=== PATIENT | female | born 1935 | race Caucasian/White ===

== ENCOUNTER → 2016-06-29 | Outpatient (CLI) | payer MEDICARE, OTHER ==
[~2016-06-29] MED LIST: ACET-2321 PO; AMIO200T7 PO; ASPI-558 PO; LEVO75TA10 PO; LORA0.5T86 PO; MAGN400O4 PO; OXYC5TAB84 PO; POLY17PO18 PO; SENN-152 PO
--- NOTE | 2016-06-29 15:15 | DI ---
Indication: ITS.REASON: M25.552 Pain in left hip Procedure: CT LOWER EXTREMITY LT W/O CONT: Encounter: Initial Comparison: Pelvic and left hip radiographs 06/03/2016 and 06/02/2016, left hip radiographs 04/06/2016, pelvic radiograph 03/25/2014 Technique: Contiguous axial CT images of the left hip were obtained without intravenous contrast. Coronal and sagittal reformatted images as well as 3-D reconstructed images were performed. Findings: Redemonstration of postoperative changes of left total hip arthroplasty. The hardware components appear appropriately aligned without evidence of acute hardware complication. No acute periprosthetic fracture. No evidence of hardware loosening. The musculature surrounding the left hip and prosthesis appear grossly normal allowing for streak artifact from the metallic hardware. There is a partially visualized approximately 7 x 5 x 5 cm low-density cystic fluid collection seen within the subcutaneous soft tissues posterior lateral to the hip suspected to represent a postoperative seroma. Impression: 1. Postoperative changes of left total hip arthroplasty without evidence of acute hardware complication, loosening, or periprosthetic fracture. 2. Low-density cystic fluid collection within the subcutaneous soft tissues posterior lateral to the hip likely related to a residual postoperative seroma. .
== END ==
LOC: IMA 13:20
PROVIDERS: ATTEND Physician Assistant Surgical
DX: M79.9 Soft tissue disorder, unspecified (principal); Z96.642 Presence of left artificial hip joint; M25.552 Pain in left hip

== ENCOUNTER 2016-07-08 08:20 | Emergency (ER) | payer MEDICARE, OTHER ==
[~2016-07-08] VITALS: Ht 149.9 cm; Wt 66.0 kg
[2016-07-08 08:23] VITALS: Ht 149.9 cm; Wt 66.0 kg
--- OUTSIDE RECORDS SUMMARY | 2016-07-08 08:28 | XMS REPORT | Referral Summary ---
Author Author [facility] Organization [facility] Address Unknown Phone Unavailable Care Team Providers Care Shop Tech Name Role Phone Jimmy Palmer Primary Care Physician [phone] Encounter VC Date(s): 06/01/16 - 06/01/16 [facility] [address] [place], [place] [address] Discharge Disposition: 01-Home or Self Care Attending Physician: Brando Oro MD Admitting Physician: Brando Oro MD Vital Signs Most recent to 1 oldest [Reference Range]: Temperature Temporal 36.9 degC Artery [36.3-37.8 (06/01/16 2:34 PM) degC] Peripheral Pulse 73 bpm Rate [60-100 bpm] (06/01/16 9:11 AM) Heart Rate Monitored 80 bpm [60-100 bpm] (06/01/16 2:34 PM) Respiratory Rate 16 br/min [14-20 br/min] (06/01/16 2:34 PM) Blood Pressure 125/63 mmHg [90-140/60-90 mmHg] (06/01/16 2:34 PM) Mean Arterial 89 mmHg Pressure, Cuff (06/01/16 2:34 PM) SpO2 96 % (06/01/16 2:34 PM) Problem List Condition Effective Dates Status Health Status Informant Hip pain(Confirmed) Active patient Hypertension(Confirm Active patient ed) Hypothyroidism(Confi Active patient rmed) Bladder Active patient cancer(Confirmed) Allergies, Adverse Reactions, Alerts Substance Reaction Severity Status penicillin rash Active Medications amLODIPine 2.5 mg oral tablet 2.5 mg 1 tabs, Oral, Daily, 0 Refill(s) Start Date: 05/11/16 Status: Ordered aspirin 81 mg oral tablet 81 mg 1 tabs, Oral, Daily, 0 Refill(s) Start Date: 05/11/16 Status: Ordered hydroCHLOROthiazide 25 mg oral tablet 25 mg 1 tabs, Oral, Daily, 0 Refill(s) Start Date: 05/11/16 Status: Ordered levothyroxine 75 mcg (0.075 mg) oral capsule 75 mcg 1 caps, Oral, Daily, # 30 caps, 0 Refill(s) Start Date: 05/11/16 Status: Ordered oxyCODONE-acetaminophen 7.5 mg-325 mg oral tablet 1 tabs, Oral, q6hr, as needed for pain, 0 Refill(s) Start Date: 05/11/16 Status: Ordered Results No data available for this section Immunizations No data available for this section Procedures Procedure Date Related Diagnosis Body Site Injection Steroid Epidural Lumbar1 06/01/16 Injection Steroid Epidural Lumbar2 05/11/16 Carotid endarterectomy Cholecystectomy TURBT - Transurethral resection of bladder tumor 1auto-populated from documented surgical case 2auto-populated from documented surgical case Social History Social History Type Response Smoking Status Former smoker; Type: Cigarettes Assessment and Plan No data available for this section
--- OUTSIDE RECORDS SUMMARY | 2016-07-08 08:28 | XMS REPORT | Continuity of Care Document ---
Author Author [facility] Organization [facility] Address Unknown Phone Unavailable Support Name Relationship Address Phone STUART CAMACHO DO Caregiver [address] [place] [phone] JOSE A GILLIS MD Caregiver [address] [place] [phone] DIONY SOLORZANO Next Of Kin [address] [place], [place] [id number] Insurance Providers Payer Name Policy Number Subscriber Name Relationship Medicare [id number] Laurie Solorzano 18 Self [place] [id number] Laurie Solorzano 18 Self Advance Directives Directive Response Recorded Date/Time Advanced Directives Type None 03/25/14 7:44pm Problems Medical Problems Problem Onset Date Status Fracture of inferior pubic ramus Unknown Active Fracture of inferior pubic ramus Unknown Active Fall Unknown Active Compression fracture Unknown Active Back strain Unknown Active Medications Medication Dose Route Sig Days/Qty Instructions Order Date Discontinued Date Status Aspirin 81 Mg PO DAILY 10/28/09 Active Valsartan/Hydrochlorothiazide 1 Tab PO DAILY 06/05/09 10/28/09 Discontinued Levothyroxine Sodium 88 Mcg PO DAILY 10/29/09 Active Oxycodone Hcl/Acetaminophen 1 Tab PO NEEDED 10/29/09 Active Hydrochlorothiazide 25 Mg PO DAILY 10/29/09 Active Lisinopril 40 Mg PO DAILY 10/29/09 Active Amlodipine Besylate 2.5 Mg PO DAILY 10/29/09 Active Hydrocodone/Acetaminophen 1-2 Tab PO Every 6 Hours PRN PAIN 20 Qty 12/29 Active Social History Social History Problem Response Recorded Date/Time Chewing Tobacco Status No 03/25/2014 8:00pm Hx Substance Use No 03/25/2014 8:00pm Hx Alcohol Use No 03/25/2014 8:00pm Query Response Start Date Stop Date Smoking Status Never smoker Hospital Discharge Instructions No hospital discharge instructions. Plan of Care No plan of care. Functional Status Query Response Date Recorded Physical Hygiene Self March 25, 2014 8:00pm Disabilities Visual March 25, 2014 8:00pm Devices Used Glasses March 25, 2014 8:00pm Dressing Self March 25, 2014 8:00pm Ambulation Self March 25, 2014 8:00pm Diet Self March 25, 2014 8:00pm Mental Status Alert Oriented March 25, 2014 11:03pm Disabilities Visual March 25, 2014 8:00pm Devices Used Glasses March 25, 2014 8:00pm Physical Hygiene Self March 25, 2014 8:00pm Dressing Self March 25, 2014 8:00pm Ambulation Self March 25, 2014 8:00pm Diet Self March 25, 2014 8:00pm Allergies, Adverse Reactions, Alerts Allergen Type Severity Reaction Status Last Updated Penicillin Allergy Intermediate RASH/SWELLING Active 04/04/08 Immunizations Name Given Type Hx Influenza Vaccination Y 01/23 Historical Hx Pneumococcal Vaccination Y 03/24/2014 Historical Hx Influenza Vaccination Y 01/23 Historical Vital Signs Acute Vital Signs Vital Response Date/Time Temperature (Fahrenheit) 97.2 deg F (96.8 - 99.1) Temperature (Calculated Celsius) 36.67552 degrees C (36.0 - 37.3) Pulse Rate (adult) 82 bpm (60 - 100) Respiratory Rate 14 breaths/min (10 - 20) O2 Sat by Pulse Oximetry 97 % (90 - 100) Blood Pressure 108/64 mm Hg Height 5 ft 1 in Weight 141 lb Body Mass Index 26.0 kg/m^2 Results Test Source Date Result Interp. Ref. Range Comments Activated Partial Thromboplast Time March 25, 2014 7:44pm 26.6 SEC N 24-36 Alanine Aminotransferase (ALT/SGPT) March 25, 2014 7:44pm 28 U/L N 9- 52 Albumin March 25, 2014 7:44pm 3.8 G/DL N 3.5-5.0 Albumin/Globulin Ratio March 25, 2014 7:44pm 1.3 RATIO N 1.1-2.2 Alkaline Phosphatase March 25, 2014 7:44pm 104 U/L N 38-126 Anion Gap March 25, 2014 7:44pm 6 MEQ/L N 5-15 Aspartate Amino Transf (AST/SGOT) March 25, 2014 7:44pm 20 U/L N 14- 36 BUN/Creatinine Ratio March 25, 2014 7:44pm 13 RATIO N 6-26 Band Neutrophils # January 02, 2013 10:42am 0.1 T/MM3 - Band Neutrophils % January 02, 2013 10:42am 1.0 % N 0-6 Basophils # (Auto) October 31, 2009 5:30am 0.0 T/MM3 N 0-0.2 Basophils (%) (Auto) October 31, 2009 5:30am 0.3 % N 0-2 Blood Smear Pathologist Review January 02, 2013 10:42am Sent for review - Blood Urea Nitrogen March 25, 2014 7:44pm 18.0 MG/DL H 7-17 Calcium Level March 25, 2014 7:44pm 9.5 MG/DL N 8.4-10.2 Calculated Osmolality March 25, 2014 7:44pm 266 MOSM/KG N 261-280 Carbon Dioxide Level March 25, 2014 7:44pm 23 MEQ/L N 22-30 Chemistry Specimen Hemolysis March 25, 2014 7:44pm < 15 0-25 0-25 : No Hemolysis.26-70: Slight Hemolysis - can falsely elevate K and Urine Protein. 71-285: Moderate Hemolysis - can falsely elevate K, Troponin I, CA 19-9, PTH, CSF GLucose, and Urine Protein, and can falsely decrease Phenytoin. 286-999: Gross Hemolysis - can falsely elevate K, Troponin I, CA 19-9, PTH, CSF Glucose, and Urine Protine, and can falsely decrease Phenytoin. Recommend specimen recollection. Chloride Level March 25, 2014 7:44pm 108 MEQ/L H 98-107 Creatinine March 25, 2014 7:44pm 1.4 MG/DL H 0.7-1.2 Eosinophils # (Auto) October 31, 2009 5:30am 0.3 T/MM3 N 0-0.5 Eosinophils # (Manual) January 02, 2013 10:42am 0.6 T/MM3 H 0-0.5 Eosinophils % (Manual) January 02, 2013 10:42am 7.0 % H 0-4 Eosinophils (%) (Auto) October 31, 2009 5:30am 2.8 % N 0-4 Ferritin January 02, 2013 10:42am 55.5 NG/ML N 11-264 Folate January 02, 2013 10:42am 10.0 NG/ML N 2.76-20 NORMAL ADULT RANGE: 2.76->20 ng/mL Globulin March 25, 2014 7:44pm 3.0 G/DL N 2.4-3.6 Glomerular Filtration Rate Calc March 25, 2014 7:44pm 36 - Glucose Level March 25, 2014 7:44pm 106 MG/DL N 65-110 Hematocrit March 25, 2014 8:15pm 33.2 % L 36-46 Hemoglobin March 25, 2014 8:15pm 10.8 GM/DL L 12-16 Icterus Index March 25, 2014 7:44pm < 2 0-7 Iron Level January 02, 2013 10:42am 63 UG/DL N 37-170 Lab Scanned Report January 02, 2013 12:49pm LAB TEST FORM REQUEST [id number] - Lymphocytes # (Auto) October 31, 2009 5:30am 1.8 T/MM3 N 1-4.8 Lymphocytes # (Manual) March 25, 2014 8:15pm 1.0 T/MM3 N 1-4.8 Lymphocytes % (Manual) March 25, 2014 8:15pm 9.0 % L 23-45 Lymphocytes (%) (Auto) October 31, 2009 5:30am 19.6 % L 23-45 Mean Corpuscular Hemoglobin March 25, 2014 8:15pm 30.9 UUG N 26-34 Mean Corpuscular Hemoglobin Concent March 25, 2014 8:15pm 32.5 GM/DL N 31-37 Mean Corpuscular Volume March 25, 2014 8:15pm 95.1 UM3 N 80-100 Mean Platelet Volume March 25, 2014 8:15pm 11.5 UM3 N 9.4-12.4 Monocytes # (Auto) October 31, 2009 5:30am 1.0 T/MM3 H 0-0.8 Monocytes # (Manual) March 25, 2014 8:15pm 0.3 T/MM3 N 0-0.8 Monocytes % (Manual) March 25, 2014 8:15pm 3.0 % N 0-9.0 Monocytes (%) (Auto) October 31, 2009 5:30am 10.3 % H 0-9.0 Neutrophils # (Auto) October 31, 2009 5:30am 6.3 T/MM3 N 1.8-7.7 Neutrophils # (Manual) March 25, 2014 8:15pm 10.2 T/MM3 H 1.8-7.7 Neutrophils % (Manual) March 25, 2014 8:15pm 88.0 % H 33-66 Neutrophils (%) (Auto) October 31, 2009 5:30am 67.0 % H 33-66 Percent Iron Saturation January 02, 2013 10:42am 27 % N 9-55 Platelet Count March 25, 2014 8:15pm 188 T/MM3 N 130-400 Potassium Level March 25, 2014 7:44pm 4.9 MEQ/L N 3.6-5 Prothromb Time International Ratio March 25, 2014 7:44pm 1.11 H 0.81- 1.09 THERAPUTIC RANGE=2.00-3.00 FOR ANTI-THROMBOSIS THERAPUTIC RANGE=2.50- 3.50 FOR IMPLANTED VALVE RDW Standard Deviation March 25, 2014 8:15pm 44.0 FL N 36.9-50.2 Reactive Lymphocytes # January 02, 2013 10:42am 0.1 T/MM3 H 0-0 Reactive Lymphocytes % January 02, 2013 10:42am 1.0 % H 0-0 Red Blood Count March 25, 2014 8:15pm 3.49 M/MM3 L 4.00-5.20 Sodium Level March 25, 2014 7:44pm 137 MEQ/L N 134-144 Tests Not Done March 03, 2009 10:40am Not done - Thyroid Stimulating Hormone (TSH) March 25, 2014 7:44pm 0.68 MIU/L N 0.47-4.68 Total Bilirubin March 25, 2014 7:44pm 1.00 MG/DL N 0.20-1.30 Total Iron Binding Capacity January 02, 2013 10:42am 231 UG/DL L 261- 497 Total Protein March 25, 2014 7:44pm 6.8 G/DL N 6.3-8.2 Transferrin January 02, 2013 10:42am 187.10 MG/DL L 206-381 Turbidity March 25, 2014 7:44pm < 20 0-20 Urinalysis Comment March 25, 2014 9:03pm Microscopic not ind. - Has specimen been collected/obtained? Y Urine Bilirubin March 25, 2014 9:03pm Negative - Has specimen been collected/obtained? Y Urine Blood March 25, 2014 9:03pm Trace-intact H - Has specimen been collected/obtained? Y Urine Collection Type March 25, 2014 9:03pm Straight cath - Has specimen been collected/obtained? Y Urine Color March 25, 2014 9:03pm Yellow - Has specimen been collected/obtained? Y Urine Glucose (UA) March 25, 2014 9:03pm Negative - Has specimen been collected/obtained? Y Urine Ketones March 25, 2014 9:03pm Negative - Has specimen been collected/obtained? Y Urine Leukocyte Esterase March 25, 2014 9:03pm Negative - Has specimen been collected/obtained? Y Urine Nitrite March 25, 2014 9:03pm Negative - Has specimen been collected/obtained? Y Urine Protein March 25, 2014 9:03pm Negative - Has specimen been collected/obtained? Y Urine Specific [place] March 25, 2014 9:03pm 1.015 - Has specimen been collected/obtained? Y Urine Turbidity March 25, 2014 9:03pm Clear - Has specimen been collected/obtained? Y Urine Urobilinogen March 25, 2014 9:03pm 0.2 EU/DL - Has specimen been collected/obtained? Y Urine pH March 25, 2014 9:03pm 6.0 - Has specimen been collected/ obtained? Y Vitamin B12 Level January 02, 2013 10:42am 302 PG/ML N 239-931 White Blood Count March 25, 2014 8:15pm 11.6 T/MM3 H 4.5-11.0 Gram Stain Shoulder, Surgery Site-Right October 29, 2009 8:50am Procedures No known history of procedures. Encounters Encounter Location Date/Time Registered Emergency Room [facility] 03/25/14 7:44pm Recent Diagnosis
--- OUTSIDE RECORDS SUMMARY | 2016-07-08 08:28 | XMS REPORT | Referral Summary ---
Author Author [facility] Organization [facility] Address Unknown Phone Unavailable Care Team Providers Care Wood Form Builder Name Role Phone Jimmy Palmer Primary Care Physician [phone] Encounter VC Date(s): 05/11/16 - 05/11/16 [facility] [address] [place], [place] [address] Discharge Disposition: 01-Home or Self Care Attending Physician: Brando Oro MD Vital Signs Most recent to 1 oldest [Reference Range]: Temperature Temporal 36.6 degC Artery [36.3-37.8 (05/11/16 10:15 AM) degC] Peripheral Pulse 80 bpm Rate [60-100 bpm] (05/11/16 10:15 AM) Respiratory Rate 16 br/min [14-20 br/min] (05/11/16 10:15 AM) Blood Pressure 136/57 mmHg [90-140/60-90 mmHg] (05/11/16 10:15 AM) SpO2 98 % (05/11/16 10:15 AM) Problem List Condition Effective Dates Status Health [...] Diagnosis Body Site Injection Steroid Epidural Lumbar1 05/11/16 Carotid endarterectomy Cholecystectomy TURBT - Transurethral resection of bladder tumor 1auto-populated from documented surgical case Social History Social History Type Response Smoking Status Former smoker; Type: Cigarettes Assessment and Plan No data available for this section
--- NOTE | 2016-07-08 08:40 | NUR ---
VERBAL ORDERS VERBAL ORDERS FOR MORPHINE 2 MG AND ZOFRAN 4 MG AND GIVEN PRIOR TO ORDERS ENTERED.
[2016-07-08] MEDS ORDERED: ONDANSETRON 4mg/2ml INJECTION IV ONE (08:45)
[2016-07-08] MEDS ORDERED: MORPHINE SULFATE 2 MG SYRINGE IV ONE (08:45)
--- OUTSIDE RECORDS SUMMARY | 2016-07-08 08:51 | XMS REPORT | Continuity of Care Document ---
Author Author [facility] Organization [facility] Address Unknown Phone Unavailable Support Name Relationship Address Phone STUART CAMACHO DO Caregiver [address] [place] [phone] JOSE A GILLSI MD Caregiver [address] [place] [phone] DIONY SOLORZANO Next Of Kin [address] [place], [place] [id number] Insurance Providers Payer Name Policy Number Subscriber Name Relationship Medicare [id number] Laurie Solorzano 18 Self [place] [id number] Laurie Solorzano 18 Self Advance Directives Directive [...] F (96.8 - 99.1) Temperature (Calculated Celsius) 36.42031 degrees C (36.0 - 37.3) Pulse Rate [...] 02, 2013 12:49pm LAB TEST FORM REQUEST [id number] - Lymphocytes # (Auto) October 31, 2009 [...] Has specimen been collected/obtained? Y Urine Specific [place] March 25, 2014 9:03pm 1.015 - Has [...] Encounters Encounter Location Date/Time Registered Emergency Room [facility] 03/25/14 7:44pm Recent Diagnosis
--- NOTE | 2016-07-08 09:06 | NUR ---
CLOTHING PT'S JEANS CUT OFF OF PT WITH HER PERMISSION, ATTEMPTED TO TAKE JEANS OFF BUT CAUSED PT TOO MUCH PAIN.
--- NOTE | 2016-07-08 09:08 | NUR ---
XRAY/CT PT TAKEN FOR CT AND XRAYS PER COT.
[2016-07-08] MEDS ORDERED: AMIO200T2 PO (09:22)
[2016-07-08] MEDS ORDERED: LEVO75TA10 PO (09:22)
[2016-07-08] MEDS ORDERED: POLY250020 PO (09:23)
[2016-07-08] MEDS ORDERED: SENN-152 PO (09:23)
[2016-07-08] MEDS ORDERED: LORA0.5T2 PO (09:26)
--- NOTE | 2016-07-08 09:26 | NUR ---
CT PT RETURNED FROM CT PER COT.
[2016-07-08] MEDS ORDERED: ACET-2890 PO (09:27)
[2016-07-08] MEDS ORDERED: MAGN400O4 PO (09:28)
[2016-07-08] MEDS ORDERED: OXYC1TAB8 PO (09:29)
--- NOTE | 2016-07-08 09:32 | DI ---
Indication: ITS.REASON: fall PROCEDURE: CT HEAD W/O CONTRAST: Encounter: Initial Comparison: March 25, 2014 Technique: Axial CT images through the head were performed without contrast. Iterative Reconstruction dose reducing technique was utilized. FINDINGS: Moderate atrophy. The ventricles are of normal size, shape, and configuration for the patient's age. There is no evidence of acute intracranial hemorrhage, midline displacement, or mass effect. There are extensive areas of low attenuation in the white matter which most likely represent changes of chronic microvascular ischemia. The CT attenuation of the brain parenchyma is otherwise normal within the cerebellum, brain stem, and cerebral hemispheres. The tympanic cavities and mastoid air cells are free of appreciable disease. There are no definite fractures of the skull base, calvarium, or visualized portion of the midface. IMPRESSION: No CT evidence of acute traumatic intracranial injury. .
--- NOTE | 2016-07-08 09:35 | DI ---
Indication: ITS.REASON: fall with neck pain PROCEDURE: CT CERVICAL SPINE W/O CONTRAST: Encounter: Initial Comparison: None Technique: Axial CT images through the cervical spine were performed without contrast. Coronal and sagittal reformatted images were also obtained. Automated Exposure Control and Iterative Reconstruction dose reducing techniques were utilized. FINDINGS: Motion artifact limits the exam. The alignment of the cervical spine is normal. Multilevel degenerative changes are present. There is no gross evidence of acute fracture or subluxation of the cervical spine. The atlantoaxial articulation, dens, and upper cervical spine demonstrate no subluxation. The paraspinal soft tissues and spinal canal appear unremarkable. IMPRESSION: No acute traumatic abnormality of the cervical spine. .
--- NOTE | 2016-07-08 09:39 | DI ---
Indication: ITS.REASON: pain, fall PROCEDURE: PELVIS W/2 VIEW LT HIP: Encounter: Initial Comparison: June 03, 2016 Findings: Left femoral head replacement appears intact. No evidence of hardware loosening or failure. Bony demineralization. There is a small oblique lucency in the medial cortex of the proximal femoral diaphysis seen on two of the views. Impression: Possible nondisplaced fracture of the medial proximal femur. CT could be performed for further evaluation. .
--- NOTE | 2016-07-08 09:45 | NUR ---
PAIN RE-ASSESSMENT/PROVIDER NOTIFIED PT IS SOBBING IN ROOM, C/O SEVERE PAIN TO LEFT HIP, UNABLE TO COMFORT PT WITH POSITIONING. DR. MICHELLE IS NOTIFIED OF PT'S CONTINUED DISCOMFORT.
--- NOTE | 2016-07-08 09:57 | NUR ---
VERBAL ORDERS FENTANYL 50 MCG FENTANYL GIVEN IV PER VERBAL ORDERS DR. MICHELLE.
[2016-07-08] MEDS ORDERED: FENTANYL 100mcg/2ml INJECTION IV ONE (10:15)
--- NOTE | 2016-07-08 10:42 | NUR ---
FAMILY CONTACT SPOKE TO PT'S SON PER CELL PHONE, ADVISED PT WILL BE TRANSFERING TO [facility] SHORTLY. PT STATES HE WILL MEET PT AT [facility] LATER TODAY, IS UNABLE TO GET AWAY AT THIS TIME.
--- NOTE | 2016-07-08 10:43 | ERPDOC ---
Departure Disposition Decision Date: Jul 08, 2016 Disposition Decision Time: 10:30 Disposition: 02 TO [facility] Impression Impression Impression: Primary Impression: Femur fracture Encounter type: initial encounter Femur location: shaft Fracture type: closed Fracture morphology: unspecified fracture morphology Laterality: left Qualified Codes: S72.302A - Unspecified fracture of shaft of left femur, initial encounter for closed fracture Severity: Moderate Condition: Improved Seen By: Physician only Referrals: STUART CAMACHO DO (Family) Problems/Meds/Labs Reviewed?: Yes Medications reviewed and manag: Yes Follow up care ordered?: Yes Mental Status: Alert, Confused HPI - Lower Extremity General Chief Complaint: Lower Extremity Injury Stated Complaint: FALL, HEAD INJ Time Seen by Provider: 08:28 Source: patient, EMS Exam Limitations: no limitations HPI - Lower Extremity Initial Comments 80-year-old female presents to the emergency department with a chief complaint of an injury to her left hip. Patient was ambulating at her nursing facility when she slipped causing her to lose her balance and fall. Patient landed directly on her left hip. The event was witnessed. Patient notes a severe pain in the left hip. No radiation. Pain is dull. Pain increases with movement of the affected extremity and improves with rest and positioning. Patient denies any other complaints or associated symptoms. Patient was at her care facility when the incident occurred. Symptoms have been persistent in nature since onset. Patient denies any other injuries. Allergies: Coded Allergies: Penicillins (Verified Allergy, Intermediate, RASH/SWELLING, 07/08/16) Past History Patient Surgical History bilateral carotid surgery, lap choley, several cystoscopies, Right shoudler surgery colonoscopy per Dr Cisse s/p L hip surgery by Dr. Leyva Past Medical History Metabolic: cancer, hypercholesterolemia, hypertension, hypothyroidism Cardiac: CAD, other Respiratory: other Female: renal insufficiency Surgical History General: gallbladder Cardiac: carotid endarterectomy Reproductive/: other Joint: shoulder Family History Family PMH: FOUND: cancer, diabetes Vaccines Hx Influenza Vaccination: No (pt. does not know) Hx Pneumococcal Vaccination: No (pt. does not know) Social History Smoking Status: Never smoker Does patient use chewing tobac: No Second Hand Exposure: No Substance Use Type: does not use Alcohol Intake: none Housing: house Service: No Current Occupational Status: retired Review of Systems Constitutional Constitutional: DENIES: chills, fever Eyes General: DENIES: erythema, exudate Lids/Accessories: DENIES: erythema, swelling Vision: DENIES: acuity, blurring ENMT Ears: DENIES: drainage, erythema Hearing: DENIES: hearing loss Balance: DENIES: ataxia, falling to one side Sinuses: DENIES: congestion, pain Nose: DENIES: nosebleeds, pain Mouth/Throat: DENIES: sore throat Teeth: DENIES: pain Cardiovascular Cardiac: DENIES: chest pain, dyspnea on exertion Rhythm/Rate: DENIES: irregular beat, palpitations Vascular: DENIES: pedal edema, unilateral swelling Pulmonary Respiratory: DENIES: cough, dyspnea, pleuritic chest pain, sputum GI Upper Abdomen: DENIES: nausea, pain, vomiting Lower Abdomen: DENIES: diarrhea, pain General: DENIES: dysuria, pain Musculoskeletal General: joint pain, tenderness Integumentary Skin: DENIES: itching, rash Neurological General: DENIES: headache, numbness, weakness Psychiatric Psychiatric: DENIES: emotional instability, suicidal ideation/attempt Hematologic/Lymphatic Hematologic/Lymphatic: DENIES: frequent nosebleeds, lymphadenopathy Allergic/Immunological Allergic/Immunoligical: DENIES: frequent infections, hives Physical Exam General General Nourishment: well nourished, well developed, appears stated age, no acute distress, adult General Body Habitus: well groomed Vitals and Pain First Documented Vital Signs Date Time Temp Pulse Resp B/P Pulse Ox O2 Delivery O2 Flow Rate FiO2 07/08/16 08:23 98.2 77 18 139/90 99 Room Air Weight: Kilograms: 66.000 Height (feet): 4 Height (inches): 11.00 Triage Pain Scale: RN VS reviewed by Provider: Yes Normal Exams: Head: Normocephalic w/o trauma Eyes: Pupils are PERRLA w/ EOMI, No scleral icterus, irritation, or foreign bodies noted ENMT: No facial trauma, nasal exudates, pharyngeal erythema, or exudates are noted Dental: No fractured, loose, or missing teeth noted Neck: Full range of motion, without adenopathy, JVD, bruits or thyromegaly Chest/Resp: Clear all lindquist, with good airflow, and symmetry bilaterally CV: Regular rate and rhythm, without murmur or gallop, Pulses 2+ all extremities, capillary refill, <2 seconds all ext., no pedal edema noted Abdomen: Bowel sounds positive, soft, non-tender, non-distended, no hepatosplenomegaly, masses or bruits noted Lymphatic: No lymphadenopathy, or lymphedema noted Integumentary: No rashes, hives, or bruising noted, hair and nails, without abnormality Neurologic: Patient is alert, and oriented, cranial nerves, motor/sensory/ cerebellar, exams w/o gross deficits, to observation Psychiatric: Patient exhibits, appropriate attention, emotion and affect Neck (brief) Comments No mid-line tenderness or deformity. Musculoskeletal (brief) Comments L Hip - diffusely tender to palpation. Skin is intact. Pulses intact. Sensation intact. Capillary refill less than 2. Decreased range of motion secondary to pain. No erythema. No edema. No other tenderness in the left lower extremity. All other extremities are unremarkable. Differential Diagnoses Considering: Contusion, Dislocation, Fracture, Sprain, Strain Progress Results/Orders Orders Procedure Category Date Status Time Ct Cervical Spine W/O CT 07/08/16 Resulted Contrast 08:33 Pelvis W/2 View Lt Hip RAD 07/08/16 Resulted 08:33 Morphine Sulfate PHA 07/08/16 Complete (Morphine) 08:45 Ondansetron Inj PHA 07/08/16 Complete (Zofran) 08:45 Ct Head W/O Contrast CT 07/08/16 Resulted 08:33 Fentanyl (Fentanyl) PHA 07/08/16 Complete 10:15 Medications Current ED Medications Morphine Sulfate (Morphine) 2 mg O ONCE IV Last administered on 07/08/16 08: 40; Start 07/08/16 at 08:45; Stop 07/08/16 at 08:46; Status DC Ondansetron HCl (Zofran) 4 mg O ONCE IV Last administered on 07/08/16 08:40; Start 07/08/16 at 08:45; Stop 07/08/16 at 08:46; Status DC Fentanyl (Fentanyl) 50 mcg O ONCE IV Last administered on 07/08/16 09:57; Start 07/08/16 at 10:15; Stop 07/08/16 at 10:16; Status DC Progress Progress Imaging is discussed in detail with the patient and questions are answered. Patient is given parental narcotic and antiemetic medications intravenously with improvement of symptoms. Patient is discussed with orthopedic surgeon Dr. Leyva who is uncomfortable keeping the patient due to her history of ORIF of the left hip at [facility]. Dr. Leyva's recommendation is to transfer the patient to [facility] under the care of Dr. Vj Chino for revision of the hip replacement. Orthopedic services are not available for the type of surgery the patient would need at [facility] and the patient must be transferred to [facility]. Patient is in agreement with the current plan of management. Patient is transferred to [facility] without incident. Risks versus benefit of transfer discussed in detail with the patient who verbalizes agreement and understanding. Dr. Vj Chino was accepting physician at [facility]. Xray Xray : Xray: Pelvis Interpretation: Abnormal, Interpreted by Me (left femoral fracture.), Reviewed Written Report CT CT : CT: Head no contrast Interpretation: Normal (CT cervical spine: Negative.), Interpreted by Me, Reviewed Written Report DONATO MICHELLE DO Jul 08, 2016 10:43
--- NOTE | 2016-07-08 11:00 | NUR ---
PAIN RE-ASSESSMENT PT STATES SHE IS FEELING MUCH BETTER, 2/ WHILE STILL. IMPROVEMENT POST FENTANYL AND RUST CATH.
--- NOTE | 2016-07-08 11:10 | NUR ---
EMS ON SCENE EMS HERE FOR TRANSFER, [facility] NOW DELAYING TRANSFER, EMS REMAINS ON SCENE.
--- NOTE | 2016-07-08 11:39 | NUR ---
REPORT REPORT CALLED TO ALEKS ALICEA.
[2016-07-08 11:57] VITALS: BP 157/83; PULSE 66; RESP 14; TEMP 98; O2SAT 97
--- NOTE | 2016-07-08 11:57 | NUR ---
DEPART ED PT DEPARTED PER EMS AT THIS TIME.
--- NOTE | 2016-07-08 14:15 | NUR ---
REPORT REPORT CALLED TO KEANU GIFFORD.
== END 2016-07-08 11:57 | disposition short-term general hospital (02) ==
LOC: ED 08:20
DX: S72.302A Unspecified fracture of shaft of left femur, initial encounter for closed fracture (principal); M54.2 Cervicalgia; W01.0XXA Fall on same level from slipping, tripping and stumbling without subsequent striking against object, initial encounter; Y93.01 Activity, walking, marching and hiking; Y92.129 Unspecified place in nursing home as the place of occurrence of the external cause; Y99.8 Other external cause status
CPT/HCPCS: 51702; 70450; 72125; 73502; 96374; 96375; 99285; J2405; J3010

== ENCOUNTER 2016-08-06 13:04 | Emergency (ER) | payer MEDICARE, OTHER ==
[~2016-08-06] VITALS: Ht 154.9 cm; Wt 65.0 kg
[~2016-08-06 13:04] MED LIST changes: -ACET-2321 PO; +ACET-2890 PO; +AMIO200T2 PO; -AMIO200T7 PO; +LORA0.5T2 PO; -LORA0.5T86 PO; +OXYC1TAB8 PO; -OXYC5TAB84 PO; -POLY17PO18 PO; +POLY250020 PO
[2016-08-06 13:05] VITALS: Ht 154.9 cm; Wt 65.0 kg
--- OUTSIDE RECORDS SUMMARY | 2016-08-06 13:09 | XMS REPORT | Continuity of Care Document ---
Author Author [facility] Organization [facility] Address Unknown Phone Unavailable Allergies Active Description Code Type Severity Reaction Onset Reported/Identified Relationship to Patient Clinical Status Yes Penicillins Penicillins Drug Allergy Unknown ITCHING 07/08/2016 Medications Problems Date Dx Coded Attending Type Code Diagnosis Diagnosed By 07/08/2016 Lars Chino MD D62 ACUTE POSTHEMORRHAGIC ANEMIA 07/08/2016 Lars Chino MD D72.829 ELEVATED WHITE BLOOD CELL COUNT, UNSPECIFIED 07/08/2016 Lars Chnio MD E03.9 HYPOTHYROIDISM, UNSPECIFIED 07/08/2016 Lars Chino MD E78.5 HYPERLIPIDEMIA, UNSPECIFIED 07/08/2016 Lars Chino MD E87.5 HYPERKALEMIA 07/08/2016 Lars Chino MD F03.90 UNSPECIFIED DEMENTIA WITHOUT BEHAVIORAL DISTURBANC 07/08/2016 Lars Chino MD I12.9 HYPERTENSIVE CHRONIC KIDNEY DISEASE W STG 1-4/UNSP 07/08/2016 Lars Chino MD I25.10 ATHSCL HEART DISEASE OF [place] CORONARY ARTERY W/O 07/08/2016 Lars Chino MD I48.91 UNSPECIFIED ATRIAL FIBRILLATION 07/08/2016 Lars Chino MD M97.02XA PERIPROSTH FRACTURE AROUND INTERNAL PROSTH L HIP J 07/08/2016 Lars Chino MD N18.9 CHRONIC KIDNEY DISEASE, UNSPECIFIED 07/08/2016 Lars Chino MD R09.02 HYPOXEMIA 07/08/2016 Lars Chino MD S72.042A DISP FX OF BASE OF NECK OF LEFT FEMUR, INIT FOR CLOS FX 07/08/2016 Lars Chino MD W19.XXXA UNSPECIFIED FALL, INITIAL ENCOUNTER 07/08/2016 Lars Chino MD 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 07/08/2016 Lars Chino MD Z88.0 ALLERGY STATUS TO PENICILLIN 07/08/2016 Lars Chino MD Z90.49 ACQUIRED ABSENCE OF OTHER SPECIFIED PARTS OF DIGES Procedures Code Description Performed By Performed On [id number] REMOVAL OF INT FIX FROM L HIP JT, OPEN APPROACH Lars Chino MD 07/08/2016 [id number] REPLACE OF L HIP JT WITH SYNTH SUB, CEMENT, Lars Yin MD 07/08/2016 [id number] INTRODUCTION OF OTH ANTI-INFECT INTO JOINT, Lars Yin MD 07/08/2016 Results Test Result Range CBC W/DIFF - 07/08/16 14:56 EOSINOPHIL # 0.1 k/cumm 0.1-0.5 EOSINOPHIL % 1 % 2-4 GRANULOCYTE # 6.1 k/cumm 2.0-9.0 GRANULOCYTE % 69 % 50-75 LYMPHOCYTE # 1.8 k/cumm 1.0-4.0 LYMPHOCYTE % 21 % 20-30 MEAN CELL HGB 30.6 pg 27.0-33.0 MEAN CELL HGB CONCENTRATION 32.3 g/dL 32.0-37.0 MEAN CELL VOLUME 94.7 fl 80.0-100.0 MONOCYTE # 0.7 k/cumm 0.1-1.0 MONOCYTE % 8 % 4-6 RED BLOOD CELL 3.40 m/cumm 4.00-6.00 RED CELL DISTRIBUTION WIDTH 14.8 % 11.0- 15.6 WHITE BLOOD CELL 8.9 k/cumm 5.0-10.0 HEMOGLOBIN 10.4 gm/dL 12.0-16.0 HEMATOCRIT 32.2 % 37.0-47.0 PLATELET COUNT 278 k/cumm 150-400 PROTHROMBIN TIME WITH INR - 07/08/16 14:56 INTERNATIONAL NORMAL RATIO 1.1 0.9-1.1 PROTHROMBIN TIME 12.5 sec 10.0-12.9 METABOLIC PANEL, COMPREHN - 07/08/16 14:56 POTASSIUM 4.3 mmol/L 3.5-5.3 EST GFR (MDRD) 48 mL/min > 59 ANION GAP 8 mmol/L 5-15 EST CrCl (CG) 35 mL/min > 59 GLUCOSE 79 mg/dL 70-99 CALCIUM 8.9 mg/dL 8.5-10.1 BLOOD UREA NITROGEN 10 mg/dL 7-20 CREATININE 1.1 mg/dL 0.6-1.0 SODIUM 139 mmol/L 135-148 CHLORIDE 105 mmol/L 98-110 AST/SGOT 14 Units/L 10-37 ALT/SGPT 10 Units/L < 66 CARBON DIOXIDE 26 mmol/L 21-32 TOTAL PROTEIN 6.4 gm/dL 6.4-8.2 ALBUMIN 3.4 gm/dL 3.4-5.0 BILI TOTAL 0.7 mg/dL 0.0-1.0 ALKALINE PHOSPHATASE TOTAL 106 IU/L 45- 117 MRSA SURVEILLANCE SCREEN - 07/09/16 11:22 Microbiology CBC - 07/10/16 07:31 MEAN CELL HGB 30.6 pg 27.0-33.0 MEAN CELL HGB CONCENTRATION 33.3 g/dL 32.0-37.0 MEAN CELL VOLUME 91.8 fl 80.0-100.0 RED BLOOD CELL 2.94 m/cumm 4.00-6.00 RED CELL DISTRIBUTION WIDTH 14.6 % 11.0- 15.6 WHITE BLOOD CELL 16.8 k/cumm 5.0-10.0 HEMOGLOBIN 9.0 gm/dL 12.0-16.0 HEMATOCRIT 27.0 % 37.0-47.0 PLATELET COUNT 210 k/cumm 150-400 [facility] - 07/10/16 07:31 POTASSIUM 5.0 mmol/L 3.5-5.3 EST GFR (MDRD) 43 mL/min > 59 ANION GAP 11 mmol/L 5-15 EST CrCl (CG) 32 mL/min > 59 GLUCOSE 117 mg/dL 70-99 CALCIUM 8.1 mg/dL 8.5-10.1 BLOOD UREA NITROGEN 12 mg/dL 7-20 CREATININE 1.2 mg/dL 0.6-1.0 SODIUM 138 mmol/L 135-148 CHLORIDE 107 mmol/L 98-110 AST/SGOT 27 Units/L 10-37 ALT/SGPT 17 Units/L < 66 CARBON DIOXIDE 20 mmol/L 21-32 TOTAL PROTEIN 5.7 gm/dL 6.4-8.2 ALBUMIN 2.8 gm/dL 3.4-5.0 BILI TOTAL 1.0 mg/dL 0.0-1.0 ALKALINE PHOSPHATASE TOTAL 91 IU/L 45- 117 CBC - 07/11/16 06:41 MEAN CELL HGB 30.9 pg 27.0-33.0 MEAN CELL HGB CONCENTRATION 32.4 g/dL 32.0-37.0 MEAN CELL VOLUME 95.4 fl 80.0-100.0 RED BLOOD CELL 2.59 m/cumm 4.00-6.00 RED CELL DISTRIBUTION WIDTH 14.9 % 11.0- 15.6 WHITE BLOOD CELL 12.0 k/cumm 5.0-10.0 HEMOGLOBIN 8.0 gm/dL 12.0-16.0 HEMATOCRIT 24.7 % 37.0-47.0 PLATELET COUNT 208 k/cumm 150-400 METABOLIC PANEL, BASIC - 07/11/16 06:41 POTASSIUM 3.7 mmol/L 3.5-5.3 EST GFR (MDRD) 48 mL/min > 59 ANION GAP 8 mmol/L 5-15 EST CrCl (CG) 35 mL/min > 59 GLUCOSE 92 mg/dL 70-99 CALCIUM 8.2 mg/dL 8.5-10.1 BLOOD UREA NITROGEN 20 mg/dL 7-20 CREATININE 1.1 mg/dL 0.6-1.0 SODIUM 141 mmol/L 135-148 CHLORIDE 107 mmol/L 98-110 CARBON DIOXIDE 26 mmol/L 21-32 Encounters ACCT No. Visit Date/Time Discharge Status Pt. Type Provider Facility Loc./Unit Complaint [id number] 07/08/2016 12:35:00 2016 14:57:00 DIS Inpatient Matti DAUGHERTY, Lars Cruz [facility] [id number]
--- OUTSIDE RECORDS SUMMARY | 2016-08-06 13:09 | XMS REPORT | Continuity of Care Document ---
Author Author [facility] Organization [facility] Address Unknown Phone Unavailable Support Name Relationship Address Phone STUART CAMACHO DO Caregiver [address] [place] [phone] JOSE A GILLIS MD Caregiver [address] [place] [phone] DIONY SOLORZANO Next Of Kin [address] [place], [place] [id number] Insurance Providers Payer Name Policy Number Subscriber Name Relationship Medicare [id number] Laurie Solorzano 18 Self [employer] [place] [id number] Laurie Solorzano 18 Self Advance Directives Directive [...] F (96.8 - 99.1) Temperature (Calculated Celsius) [phone] degrees C (36.0 - 37.3) Pulse Rate [...] 02, 2013 12:49pm LAB TEST FORM REQUEST [id number] - Lymphocytes # (Auto) October 31, 2009 [...] Has specimen been collected/obtained? Y Urine Specific [place] March 25, 2014 9:03pm 1.015 - Has [...] Encounters Encounter Location Date/Time Registered Emergency Room 03/25/14 7:44pm Recent Diagnosis
--- NOTE | 2016-08-06 13:11 | ERPDOC ---
Departure Disposition Decision Date: Aug 06, 2016 Disposition Decision Time: 16:15 (MAVIS REYNOLDS APRN) Disposition: 01 DISCHARGED HOME, SELF-CARE Impression Impression (MAVIS REYNOLDS APRN) Impression: Primary Impression: Pelvic fracture Encounter type: initial encounter Pelvic bone location: pubis Sublocation of pubis: unspecified portion of pubis Fracture type: closed Laterality: left Qualified Codes: S32.502A - Unspecified fracture of left pubis, initial encounter for closed fracture Additional Impression: Sacral fracture, closed Encounter type: initial encounter Zone of sacrum fracture: unspecified portion of sacrum Qualified Codes: S32.10XA - Unspecified fracture of sacrum, initial encounter for closed fracture Severity: Moderate (MAVIS REYNOLDS APRN) Condition: Stable Seen By: Mid-level only (MAVIS REYNOLDS APRN) Referrals: STUART CAMACHO DO (Family) Patient Instructions: Pelvic Fracture (ED), Sacral Fracture (ED), Fall Prevention for Older Adults (ED) Problems/Meds/Labs Reviewed?: Yes Medications reviewed and manag: Yes (MAVIS REYNOLDS APRN) Additional Instructions: Patient needs to follow with Dr. Morris or Dr. Leyva for pelvic fracture next week. Patient may take norco 5/325mg, 1-2 every 4-6 hours as needed for pain. Please assist patient with all transfers and all ambulation. (Patient may ambulated with walker assisted by staff). Follow up care ordered?: Yes Mental Status: Alert (MAVIS REYNOLDS APRN) Scripts Hydrocodone/Acetaminophen ([place] 5-325 Tablet) 5-325 Tablet 1-2 TAB PO Q4-6HPRN Y for PAIN, #30 TAB Prov: MAVIS REYNOLDS APRN 08/06/16 HPI - Fall/Injury General Chief Complaint: Fall Stated Complaint: LOW BACK PAIN, FALL Time Seen by Provider: 13:10 Source: patient, [facility], other ([facility] notes) (MAVIS REYNOLDS APRN) Time Seen by Provider: 13:10 (DONATO BARCENAS DO) HPI - Fall/Injury Initial Comments 80-year-old female [facility] from [facility] for evaluation of lower back pain. Patient states that she was in a lift chair and slid out onto the floor on her buttocks at 1100 this morning. Patient was able to ambulated with assistance of waker and staff after fall. Patient denies striking her head, LOC or neck pain. Patient was given a tramadol which she says has not helped her pain much. Patient had hip replacement on 06-03-16 and then fell on 07-08-16 and was sent to [place] for left femoral fracture which she had additional left hip surgery. On exam patient does not have any back pain however is reporting pain over her right buttocks which does have a large area of ecchymosis. Pain Scale: Now: 10/10 Injuries/Pain Location: other (buttocks) Loss of Consciousness: no loss of consciousness Associated Symptoms: DENIES: abdominal pain, chest pain, confusion, dizziness, headache, lightheadedness, nausea/vomiting, shortness of breath, slurred speech , vision changes (MAVIS REYNOLDS APRN) Allergies: Coded Allergies: Penicillins (Verified Allergy, Intermediate, RASH/SWELLING, 07/08/16) Past History Patient Surgical History bilateral carotid surgery, lap choley, several cystoscopies, Right shoudler surgery colonoscopy per Dr Cisse s/p L hip surgery by Dr. Leyva (MAVIS REYNOLDS APRN) Past Medical History Metabolic: cancer, hypercholesterolemia, hypertension, hypothyroidism Cardiac: A-fib, CAD, other Respiratory: other, DENIES: asthma GI: ulcers Female: renal insufficiency Neurological: DENIES: seizures Musculoskeletal: osteoarthritis Psychological: DENIES: depression (MAVIS REYNOLDS APRN) Surgical History General: gallbladder Cardiac: carotid endarterectomy Reproductive/: other Joint: hip, shoulder (MAVIS REYNOLDS APRN) Family History Family PMH: FOUND: cancer, diabetes (MAVIS REYNOLDS APRN) Vaccines Hx Influenza Vaccination: No (pt. does not know) Hx Pneumococcal Vaccination: No (pt. does not know) (MAVIS REYNOLDS APRN) Social History Does patient use chewing tobac: No Second Hand Exposure: No Substance Use Type: does not use Alcohol Intake: none Housing: house, [facility] Service: No Current Occupational Status: retired (MAVIS REYNOLDS APRN) Review of Systems Constitutional Constitutional: DENIES: chills, dizziness, fever, weakness (MAVIS REYNOLDS APRN) Eyes General: DENIES: erythema, exudate Lids/Accessories: DENIES: erythema, swelling Vision: DENIES: blurring (REYNOLDS,MAVIS A REFRIGERATION ENGINEERING TEACHER) ENMT Ears: DENIES: pain Hearing: DENIES: hearing loss Sinuses: DENIES: congestion, rhinorrhea Mouth/Throat: DENIES: sore throat (REYNOLDS,MAVIS A REFRIGERATION ENGINEERING TEACHER) Cardiovascular Cardiac: DENIES: chest pain, murmur Rhythm/Rate: DENIES: palpitations (REYNOLDS,MAVIS A REFRIGERATION ENGINEERING TEACHER) Pulmonary Respiratory: DENIES: cough, dyspnea (REYNOLDS,MAVIS A REFRIGERATION ENGINEERING TEACHER) GI Upper Abdomen: DENIES: nausea, pain, vomiting Lower Abdomen: DENIES: diarrhea, pain (REYNOLDS,MAVIS A REFRIGERATION ENGINEERING TEACHER) General: DENIES: dysuria, pain (REYNOLDS,MAVIS A REFRIGERATION ENGINEERING TEACHER) Musculoskeletal General: pain, see HPI, tenderness (REYNOLDS,MAVIS A REFRIGERATION ENGINEERING TEACHER) Integumentary Skin: color change, see HPI, DENIES: itching, rash (REYNOLDS,MAVIS A REFRIGERATION ENGINEERING TEACHER) Neurological General: DENIES: ataxia, change in strength, numbness, paralysis/paresis, weakness (REYNOLDS,MAVIS A REFRIGERATION ENGINEERING TEACHER) Psychiatric Psychiatric: DENIES: anxiety, depression, nervousness (REYNOLDS,MAVIS A REFRIGERATION ENGINEERING TEACHER) Physical Exam General General Nourishment: well nourished, well developed, no acute distress, adult General Body Habitus: well groomed (REYNOLDS,MAVIS A REFRIGERATION ENGINEERING TEACHER) Vitals and Pain Weight: Kilograms: Height (feet): 4 Height (inches): 11.00 Triage Pain Scale: (REYNOLDS,MAVIS A REFRIGERATION ENGINEERING TEACHER) Eyes (brief) Eyes Brief: found: EOMI, PERRL (REYNOLDS,MAVIS A REFRIGERATION ENGINEERING TEACHER) ENMT (brief) ENMT Brief: NOT FOUND: nasal exudate, nasal swelling (REYNOLDS,MAVIS A REFRIGERATION ENGINEERING TEACHER) Neck (brief) Neck: FOUND: trachea midline, NOT FOUND: adenopathy, tenderness, thyromegaly ( REYNOLDS,MAVIS A REFRIGERATION ENGINEERING TEACHER) Respiratory (brief) Respiratory: FOUND: clear all lindquist, equal bilaterally, symmetrical (REYNOLDS, MAVIS A REFRIGERATION ENGINEERING TEACHER) Cardiovascular (brief) Cardiac: FOUND: regular rate, regular rhythm (REYNOLDS,MAVIS A REFRIGERATION ENGINEERING TEACHER) Abdomen (brief) Abdominal Brief: FOUND: bowel normo active x4, soft, NOT FOUND: tender (REYNOLDS, MAVIS A REFRIGERATION ENGINEERING TEACHER) Musculoskeletal Joint #1: Side: Right Joint: hip Joint Findings: FOUND: discoloration (ecchymosis over right buttock), pain ( mild TTP over lateral side with TTP over right buttock ), NOT FOUND: ROM limited , deformity, instability, swelling Joint #2: Side: Right Joint: shoulder, elbow, wrist, knee, ankle Joint Findings: NOT FOUND: ROM limited, deformity, discoloration, instability, pain, swelling Joint #3: Side: Left Joint: shoulder, elbow, wrist, knee, ankle Joint Findings: FOUND: no abnormalities, NOT FOUND: ROM limited, deformity, discoloration, instability, pain, swelling Joint #4: Side: Left Joint: hip Joint Findings: FOUND: other (see below) Comments Patient report mild pain in left hip which she is having status post hip replacement, but no change after fall. Denies any change in ROM of hip from fall. (MAVIS RYENOLDS APRN) Integumentary (brief) Integumentary Brief: FOUND: dry, pink, warm (MAVIS REYNOLDS APRN) Neurologic Mental Status: FOUND: alert Cranial Nerves: NOT FOUND: facial asymmetry Motor : Motor Side: bilateral Motor Location: foot extension, foot flexion, director product management strength Motor Degree: 5 Sensation: FOUND: soft touch intact x4 ext (MAVIS REYNOLDS APRN) Psychiatric (brief) Psychiatric Brief: FOUND: normal affect (MAVIS REYNOLDS APRN) Differential Diagnoses Considering: Abrasion, Concussion, Contusion, Epidural Hematoma, Fracture, Sprain, Strain, Subdural Hematoma (MAVIS REYNOLDS APRN) Progress Results/Orders Orders Procedure Category Date Status Time Hydromorphone PHA 08/06/16 Complete (Dilaudid) 13:30 Pelvis W/2 View Rt Hip RAD 08/06/[address] Pelvis W/O Contrast CT 08/06/16 Resulted (DONATO BARCENAS DO) Medications Current ED Medications Hydromorphone HCl (Dilaudid) 0.5 mg O ONCE IM Last administered on 08/06/16t 13:38; Start 08/06/16 at 13:30; Stop 08/06/16 at 13:31; Status DC (DONATO BARCENAS DO) Progress Progress Patient reports improvement of pain after dilaudid. I discussed x-rays, conversation with Dr. Morris and treatment plan with patient and answered questions. Patient is able to ambulated with assistance of walker in the ER. (MAVIS REYNOLDS APRN) Consult/PCP Consult/PCP : Physician Contacted: Dr. Morris Type of discussion: Phone Consult/PCP Discussion Details I discussed patient's HPI, PMH, x-rays, VS and exam findings with Dr. Morris. Dr. Morris said [facility] to [facility] and follow with Dr. Leyva or him next week for re-evaluation. (MAVIS REYNOLDS APRN) Xray Xray : Xray: Pelvis (possible left pubic bone fracture (Dr. Barcenas)) (MAVIS REYNOLDS APRN) CT CT : CT: Other (Pelvis) Interpretation: Abnormal (Left pubic bone fracture, right sacrum als), Faxed Report (MAVIS REYNOLDS APRN) MAVIS REYNOLDS APRN Aug 06, 2016 13:11 DONATO BARCENAS DO Aug 11, 2016 20:28
[2016-08-06] MEDS ORDERED: TRAM50TA4 PO (13:17)
[2016-08-06] MEDS ORDERED: MIRT7.5T11 PO (13:18)
[2016-08-06] MEDS ORDERED: BISA10SU8 RECTALLY (13:20)
[2016-08-06] MEDS ORDERED: BISA5TAB12 PO (13:20)
[2016-08-06] MEDS ORDERED: ONDA4TAB7 PO (13:21)
--- OUTSIDE RECORDS SUMMARY | 2016-08-06 13:28 | XMS REPORT | Continuity of Care Document ---
Author Author [facility] LIVE Organization [facility] LIVE Address Unknown Phone Unavailable Support Name Relationship Address Phone STUART CAMACHO DO Caregiver [address] [place] [phone] JOSE A GILLIS MD Caregiver [address] [place] [phone] DIONY SOLORZANO Next Of Kin [address] [place], [place] [id number] Insurance Providers Payer Name Policy Number Subscriber Name Relationship Medicare [id number] Laurie Solorzano 18 Self [employer] [id number] Laurie Solorzano 18 Self Advance Directives Directive [...] F (96.8 - 99.1) Temperature (Calculated Celsius) 36.70282 degrees C (36.0 - 37.3) Pulse Rate [...] 02, 2013 12:49pm LAB TEST FORM REQUEST [id number] - Lymphocytes # (Auto) October 31, 2009 [...] Has specimen been collected/obtained? Y Urine Specific [place] March 25, 2014 9:03pm 1.015 - Has [...] Encounters Encounter Location Date/Time Registered Emergency Room [facility] 03/25/14 7:44pm Recent Diagnosis
--- OUTSIDE RECORDS SUMMARY | 2016-08-06 13:28 | XMS REPORT | Continuity of Care Document ---
Author Author [facility] Organization [facility] Address Unknown Phone Unavailable Allergies Active Description Code Type Severity Reaction Onset Reported/Identified Relationship to Patient Clinical Status Yes Penicillins Penicillins Drug Allergy Unknown ITCHING 07/08/2016 Medications Problems Date Dx Coded Attending Type Code Diagnosis Diagnosed By 07/08/2016 Lars Chino MD D62 ACUTE POSTHEMORRHAGIC ANEMIA 07/08/2016 Lars Chino MD D72.829 ELEVATED WHITE BLOOD CELL COUNT, UNSPECIFIED 07/08/2016 Lars Chino MD E03.9 HYPOTHYROIDISM, UNSPECIFIED 07/08/2016 Lars Chino MD E78.5 HYPERLIPIDEMIA, UNSPECIFIED 07/08/2016 Lars Chino MD E87.5 HYPERKALEMIA 07/08/2016 Lars Chino MD F03.90 UNSPECIFIED DEMENTIA WITHOUT BEHAVIORAL DISTURBANC 07/08/2016 Lars Chino MD I12.9 HYPERTENSIVE CHRONIC KIDNEY DISEASE W STG 1-4/UNSP 07/08/2016 Lars Chino MD I25.10 ATHSCL HEART DISEASE OF [place] CORONARY ARTERY W/O 07/08/2016 Lars Chino MD [...] INITIAL ENCOUNTER 07/08/2016 Lars Chino MD 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 Type Provider Facility Loc./Unit Complaint [id number] 07/08/2016 12:35:00 2016 14:57:00 DIS Inpatient Matti DAUGHERTY, Lars Cruz [facility] [id number]
[2016-08-06] MEDS ORDERED: HYDROMORPHONE 2mg/ml INJECTION IM ONE (13:30)
--- NOTE | 2016-08-06 13:40 | NUR ---
Assess All assessments complete, report given to NIXON Nolan
--- NOTE | 2016-08-06 13:41 | NUR ---
REPORT RECEIVED FROM NIXON JANSEN. CARE ASSUMED.
--- NOTE | 2016-08-06 14:02 | NUR ---
RADIOLOGY PT TO RADIOLOGY VIA [facility].
--- NOTE | 2016-08-06 14:11 | NUR ---
RADIOLOGY PT RETURNED.
--- NOTE | 2016-08-06 14:21 | NUR ---
STATUS PT RESTING CALMLY IN BED, SUPINE POSITION. ATTEMPTING TO REASSESS PT'S PAIN, PT UNABLE TO GIVE PAIN RATING A NUMBER. WARM BLANKETS PROVIDED FOR COMFORT.
--- NOTE | 2016-08-06 15:46 | NUR ---
STATUS PT RESTING CALMLY IN BED, EYES CLOSED. PT AWAKENS TO VOICE. PT DENIES PAIN AT THIS TIME.
--- NOTE | 2016-08-06 16:05 | NUR ---
AMBULATION ASSISTED PT TO SITTING POSITION AT SIDE OF BED. UTILIZED WALKER AND GAIT BELT FOR AMBULATION. YANY ALICEA IN ROOM FOR ASSISTANCE. PT ABLE TO BEAR WT, PT TAKES SHORT STEPS, REQUIRES FREQUENT REDIRECTION. PT DEMONSTRATES DIFFICULTY COMPREHENDING INSTRUCTIONS. PT POINTS TO R BUTTOCKS SITE OF BRUISE TO SITE OF PAIN. REPORTED AMBULATION TO Jane REYNOLDS APRN.
[2016-08-06] MEDS ORDERED: HYDR-4246 PO (16:19)
--- NOTE | 2016-08-06 16:48 | NUR ---
REPORT CALLED TO NURSE KEANU SHELTON. REQUESTED [employer] FOR RETURN HOME.
--- NOTE | 2016-08-06 16:54 | NUR ---
INSTRUCTIONS REVIEWED DISMISSAL INSTRUCTIONS WITH PT AND RX. STRESSED IMPORTANCE OF GETTING HELP WITH ALL TRANSFERS. PT HAS DIFFICULTY COMPREHENDING, WILL NEED EDUCATION REINFORCEMENT.
[2016-08-06 17:15] VITALS: BP 113/58; PULSE 80; RESP 12; TEMP 98; O2SAT 97
--- NOTE | 2016-08-06 17:15 | NUR ---
DEPART PT DEPARTED VIA WC WITH OILER B[facility]ER FROM [facility]. DISMISSAL PAPERWORK ACCOMPANIES.
--- NOTE | 2016-08-07 09:20 | DI ---
Indication: ITS.REASON: possible pelvic fracture PROCEDURE: CT PELVIS W/O CONTRAST: Encounter: Initial Comparison: July 08, 2016 Technique: Axial noncontrast CT imaging through the pelvis with coronal and sagittal two-dimensional reformats. Automated Exposure Control and Iterative Reconstruction dose reducing techniques were utilized. Findings: Bony demineralization limiting detection of nondisplaced fractures. Partially sacralized L5 vertebra noted on the left. Left total hip replacement causing metallic artifact. Possible nondisplaced fracture of the left superior pubic ramus at the pubic symphysis. Nondisplaced fracture of the right sacroiliac. Soft tissues of the pelvis show edema in the right hip region. Impression: Fractures as above. There is a preliminary report by virtual radiologic. .
--- NOTE | 2016-08-07 10:21 | DI ---
Indication: ITS.REASON: fall pain over right buttock and lateral right hip PROCEDURE: PELVIS W/2 VIEW RT HIP: Encounter: Initial Comparison: CT pelvis from the same date and pelvis radiographs dated July 08, 2016 Findings: Bony demineralization limiting detection of nondisplaced fractures. Left total hip replacement. The right sacral ala and left pubic symphyseal fracture seen by CT are not clearly visible on this exam. No radiographically apparent acute fracture or dislocation. Impression: Findings as above. Please see the CT for further details. .
== END 2016-08-06 17:15 | disposition home or self-care (01) ==
LOC: ED 13:04
DX: S32.502A Unspecified fracture of left pubis, initial encounter for closed fracture (principal); S32.10XA Unspecified fracture of sacrum, initial encounter for closed fracture; W07.XXXA Fall from chair, initial encounter; Y93.9 Activity, unspecified; Y92.129 Unspecified place in nursing home as the place of occurrence of the external cause; Y99.8 Other external cause status
CPT/HCPCS: 72192; 73502; 96372; 99284; J1170

== ENCOUNTER → 2016-08-25 | Outpatient (CLI) | payer MEDICARE, OTHER ==
[~2016-08-25] MED LIST changes: -ACET-2890 PO; +BISA10SU8 RECTALLY; +BISA5TAB12 PO; +HYDR-4246 PO; -LORA0.5T2 PO; +MIRT7.5T11 PO; +ONDA4TAB7 PO; -OXYC1TAB8 PO; -POLY250020 PO; +TRAM50TA4 PO
== END ==
LOC: IMA 10:51
PROVIDERS: ATTEND Family Medicine
DX: M81.0 Age-related osteoporosis without current pathological fracture (principal); M06.9 Rheumatoid arthritis, unspecified; Z87.828 Personal history of other (healed) physical injury and trauma

== ENCOUNTER → 2016-09-07 | Outpatient (CLI) | payer MEDICARE, OTHER ==
[2016-09-07 08:02] LABS: BASOPHILS # (AUTO) 0.1 T/MM3 (0-0.2); BASOPHILS % (AUTO) 0.7 % (0-2); EOSINOPHILS # (AUTO) 0.4 T/MM3 (0-0.5); EOSINOPHILS % (AUTO) 4.2 % (0-4); HCT - HEMATOCRIT 35.5 % (36-46); HGB - HEMOGLOBIN 10.6 GM/DL (12-16); IMMATURE GRANULOCYTE # (AUTO) 0.02 T/MM3 (0.00-0.03); IMMATURE GRANULOCYTE % (AUTO) 0.2 % (0.0-0.5); LYMPHOCYTES # (AUTO) 2.7 T/MM3 (1-4.8); LYMPHOCYTES % (AUTO) 32.7 % (23-45); MEAN CORPUSCULAR HGB CONC(MCHC 29.9 GM/DL (31-37); MEAN CORPUSCULAR VOLUME 97.3 UM3 (80-100); MEAN PLATELET VOLUME 11.5 UM3 (9.4-12.4); MONOCYTES # (AUTO) 0.6 T/MM3 (0-0.8); MONOCYTES % (AUTO) 6.7 % (0-9.0); NEUTROPHILS #(AUTO)-ABSOLUTE 4.6 T/MM3 (1.8-7.7); NEUTROPHILS % (AUTO) 55.5 % (33-66); RED BLOOD COUNT 3.65 M/MM3 (4.00-5.20); WBC - WHITE BLOOD COUNT 8.3 T/MM3 (4.5-11.0)
[2016-09-07 08:14] LABS: ALBUMIN 4.1 G/DL (3.5-5.0); ALBUMIN/GLOBULIN RATIO 1.5 RATIO (1.1-2.2); ALKALINE PHOSPHATASE 114 U/L (38-126); ALT (SGPT) 36 U/L (9-52); ANION GAP 12 MEQ/L (5-15); AST (SGOT) 27 U/L (14-36); BUN/CREATININE RATIO 16 RATIO (6-26); CHLORIDE 107 MEQ/L (98-107); CO2 - CARBON DIOXIDE 24 MEQ/L (22-30); CREATININE 1.1 MG/DL (0.7-1.2); GLOMERULAR FILTRATION RATE 48; GLUCOSE 83 MG/DL (65-110); POTASSIUM 4.3 MEQ/L (3.6-5); SODIUM 143 MEQ/L (134-144); TOTAL PROTEIN 6.8 G/DL (6.3-8.2)
== END ==
LOC: LABNH.A405 01:52
PROVIDERS: ATTEND Family Medicine
DX: I10 Essential (primary) hypertension (principal); E03.9 Hypothyroidism, unspecified; I48.91 Unspecified atrial fibrillation
CPT/HCPCS: 36415; 80053; 84439; 84443; 84481; 85025

== ENCOUNTER 2017-01-13 21:09 | Inpatient (IN) ==
--- NOTE | 2017-01-13 21:17 | Emergency Department Report ---
General Adult HPI - General Stated complaint: psych eval/fall Time Seen by Provider: 01/13/17 21:16 Source: patient, EMS Mode of arrival: EMS Limitations: altered mental status - History of Present Illness HPI narrative: Patient is an 81-year-old female, history of dementia. Patient lives in independent/assisted living. Patient has been having increasing signs of dementia, was started on Depakote this morning, after taking the Depakote patient became altered, confused, hallucinating. This continued throughout the day, this evening patient fell forward striking her forehead on the edge of a door jam. Patient continuing to be confused, however no change in her confusion it was decided to send patient to the ER for evaluation and possible psych consult. Patient arrives argumentative and combative Onset (ago): day(s) Location: head - Related Data Home Medications Medication Instructions Recorded Confirmed Aspirin [Aspir 81] 81 mg PO BID #0 10/28/09 Amiodarone HCl 200 mg PO DAILY #0 07/08/16 01/13/17 Magnesium Hydroxide [Milk of 30 ml PO DAILY PRN #0 07/08/16 Magnesia] Sennosides/Docusate Sodium [Sm 1 tab PO BID #0 07/08/16 Senna-S Tablet] Bisacodyl 1 suppositor RECTALLY DAILY PRN #0 08/06/16 01/13/17 Bisacodyl 10 mg PO DAILY #0 08/06/16 01/13/17 Mirtazapine 7.5 mg PO HS #0 08/06/16 Ondansetron [Zofran Odt] 4 mg PO Q4HR PRN #0 08/06/16 Tirosint (levothyroxine) 100 mcg 100 mcg PO DAILY cap 09/28/16 01/13/17 capsule Amiodarone [Pacerone] 200 mg PO DAILY 01/13/17 01/13/17 Calcium 600 + D [Caltrate + D] 600 mg PO DAILY 01/13/17 01/13/17 Divalproex Sodium [Depakote] 250 mg PO DAILY 01/13/17 01/13/17 Previous Rx's Medication Instructions Recorded Hydrocodone/Acetaminophen ([place] 1 - 2 tab PO Q4-6HPRN PRN #30 tab 08/06/16 5-325 Tablet) Allergies Allergy/AdvReac Type Severity Reaction Status Date / Time Penicillins Allergy Intermediate RASH/SWELLI Verified 01/13/17 22:21 NG Review of Systems Limitations: ROS unobtainable due to patient's medical condition (patient refusing to respond the review of systems argumentative and combative) PFSH Patient Stated Medical History Dementia Yes Cardiac Arrhythmia Yes: afib Hypertension Yes Other GI Yes: constipation Clinic Medical History (Last Reviewed 09/28/16 @ 10:04 by Rui Parada MD) Arthritis (Chronic Medical) Cancer (Chronic Medical) Surgical History: none Family History: Family History (Last Reviewed 09/28/16 @ 10:04 by Rui Parada MD) Maternal Grandmother Diabetes Stroke - Social History Smoking status: Current every day smoker Substance use type: does not use Alcohol intake frequency: does not drink Physical Exam - General General appearance: alert - Eye Eye exam: Present: PERRL, EOMI - Chest Chest inspection: Present: symmetric chest wall rise. Absent: tenderness - Respiratory Respiratory exam: Present: normal lung sounds bilaterally. Absent: respiratory distress, wheezes, stridor - Cardiovascular Cardiovascular exam: Present: regular rate, normal rhythm, normal heart sounds - Abdominal Exam Abdominal exam: Present: soft. Absent: distention - Extremities Exam Extremities exam: Present: normal inspection - Back Exam Back exam: Present: full ROM. Absent: tenderness, CVA tenderness (R) - Skin Skin exam: Present: warm, dry - Neurological Exam Neurological exam: Present: alert, other (patient refuses to follow commands is grossly moving all of her extremities no apparent distress) Course Vital Signs Temperature 98.1 F 01/13/17 21:09 Pulse Rate 73 01/13/17 21:09 Respiratory Rate 20 01/13/17 21:09 Blood Pressure 114/55 01/13/17 21:09 Pulse Oximetry 98 01/13/17 21:09 Temperature 98.1 F 01/13/17 21:09 Pulse Rate 67 01/13/17 22:20 Respiratory Rate 18 01/13/17 22:20 Blood Pressure 114/55 01/13/17 21:09 Pulse Oximetry 97 01/13/17 22:20 Medical Decision Making - [facility] Narrative Medical decision making narrative: Discuss case with patient's son, patient is a DO NOT RESUSCITATE. Discussed options of comfort care here versus transfer to [place] for neurosurgery consult possible interventions. Son states she is a DO NOT RESUSCITATE and she would wish no heroic measures, we'll admit to hospitalist service for comfort care possible hospice consult tomorrow - Differential Diagnosis epidural hematoma subdural hematoma, adverse reaction to medication, psycho - Lab Data Lab results reviewed: Yes: I reviewed the patient's lab results. Result diagrams: 01/13/17 21:50 01/13/17 21:50 Lab Results 01/13/17 01/13/17 01/13/17 Range/Units 21:42 21:50 21:50 WBC 11.5 H (4.5-11.0) T/MM3 RBC 3.40 L (4.00-5.20) M/MM3 Hgb 10.5 L (12-16) GM/DL Hct 33.6 L (36-46) % MCV 98.8 (80-100) UM3 MCH 30.9 (26-34) UUG MCHC 31.3 (31-37) GM/DL RDW Std Deviation 52.2 H (36.9-50.2) FL Plt Count 221 (130-400) T/MM3 MPV 11.7 (9.4-12.4) UM3 Immature Gran % (Auto) 0.3 (0.0-0.5) % Neut % (Auto) 68.1 H (33-66) % Lymph % (Auto) 22.4 L (23-45) % Esmeralda % (Auto) 7.1 (0-9.0) % Eos % (Auto) 1.7 (0-4) % Baso % (Auto) 0.4 (0-2) % Neut # (Auto) 7.8 H (1.8-7.7) T/MM3 Lymph # (Auto) 2.6 (1-4.8) T/MM3 Esmeralda # (Auto) 0.8 (0-0.8) T/MM3 Eos # (Auto) 0.2 (0-0.5) T/MM3 Baso # (Auto) 0.1 (0-0.2) T/MM3 Abs Immat Gran (auto) 0.03 (0.00-0.03) T/MM3 Turbidity < 20 (0-20) Sodium 146 H (134-144) MEQ/L Potassium 4.8 (3.6-5) MEQ/L Chloride 109 H (98-107) MEQ/L Carbon Dioxide 25 (22-30) MEQ/L Anion Gap 12 (5-15) MEQ/L BUN 23.0 H (7-17) MG/DL Creatinine 1.5 H (0.7-1.2) MG/DL GFR Calculation 33 BUN/Creatinine Ratio 15 (6-26) RATIO Glucose 84 (65-110) MG/DL Calculated Osmolality 284 H (261-280) MOSM/KG Calcium 10.1 D (8.4-10.2) MG/DL Total Bilirubin 0.70 (0.20-1.30) MG/DL Icterus Index < 2 (0-7) AST 27 (14-36) U/L ALT 28 (9-52) U/L Alkaline Phosphatase 92 (38-126) U/L Total Protein 7.1 (6.3-8.2) G/DL Albumin 4.2 (3.5-5.0) G/DL Globulin 2.9 (2.4-3.6) G/DL Albumin/Globulin Ratio 1.4 (1.1-2.2) RATIO Specimen Hemolysis 22 (0-25) Ur Collection Type Urine, clean catch Urine Color Yellow (YELLOW) Urine Clarity Clear Urine pH 6.0 (5.0-8.0) Ur Specific [place] <=1.005 L (1.015-1.025) Urine Protein Negative (NEGATIVE) Urine Glucose (UA) Negative (NEGATIVE) Urine Ketones Negative (NEGATIVE) Urine Occult Blood Trace-intact (NEGATIVE) Urine Nitrate Negative (NEGATIVE) Urine Bilirubin Negative (NEGATIVE) Urine Urobilinogen 0.2 (NORMAL) EU/DL Ur Leukocyte Esterase Trace A (NEGATIVE) Urinalysis Comment Microscopic not ind. - Radiology Data CT scan: Patient has large interparenchymal hemorrhage 6 cm with some bleeding into the ventricle Disposition Clinical Impression: Intracranial hemorrhage Disposition: 02 To [facility] Acute Care Condition: Stable - Seen By: physician
--- OUTSIDE RECORDS SUMMARY | 2017-01-13 21:33 | External Medical Summary | Continuity of Care Document ---
:1935 Author Organization [facility] Allergies Active Description Code Type Severity Reaction Onset Reported/ Identified Relationship Clinical to Patient Status Yes Penicillins Penic Drug Unknown ITCHING 07/08/2016 illin Aller s gy Medications Problems Date Dx Attending Type Code Diagnosis Diagnosed By Coded 07/08/2016 Matti DAUGHERTY, F D62 ACUTE POSTHEMORRHAGIC Christopher L ANEMIA 07/08/2016 Matti DAUGHERTY, F D72.829 ELEVATED WHITE BLOOD Christopher L CELL COUNT, UNSPECIFIED 07/08/2016 Matti DAUGHERTY, F E03.9 HYPOTHYROIDISM, Christopher L UNSPECIFIED 07/08/2016 Matti DAUGHERTY, F E78.5 HYPERLIPIDEMIA, Christopher L UNSPECIFIED 07/08/2016 Matti DAUGHERTY, F E87.5 HYPERKALEMIA Christopher L 07/08/2016 Matti DAUGHERTY, F F03.90 UNSPECIFIED DEMENTIA Christopher L WITHOUT BEHAVIORAL DISTURBANC 07/08/2016 Matti DAUGHERTY, F I12.9 HYPERTENSIVE CHRONIC Christopher L KIDNEY DISEASE W STG 1-4/UNSP 07/08/2016 Matti DAUGHERTY F I25.10 ATHSCL HEART DISEASE Junioropher L OF [place] CORONARY ARTERY W/O 07/08/2016 Matti DAUGHERTY, F I48.91 UNSPECIFIED ATRIAL Christopher L FIBRILLATION 07/08/2016 Matti DAUGHERTY, F M97.02XA PERIPROSTH FRACTURE Christopher L AROUND INTERNAL PROSTH L HIP J 07/08/2016 Matti DAUGHERTY, F N18.9 CHRONIC KIDNEY Christopher L DISEASE, UNSPECIFIED 07/08/2016 Matti DAUGHERTY, F R09.02 HYPOXEMIA Christopher L 07/08/2016 Matti DAUGHERTY, A S72.042A DISP FX OF BASE OF Christopher L NECK OF LEFT FEMUR, INIT FOR CLOS FX 07/08/2016 Matti DAUGHERTY, F W19.XXXA UNSPECIFIED FALL, Christopher L INITIAL ENCOUNTER 07/08/2016 aMtti DAUGHERTY, F Z79.82 SKILLED NURSING (CURRENT) Christopher L USE OF ASPIRIN 07/08/2016 Matti DAUGHERTY, F Z88.0 ALLERGY STATUS TO Andreser Anthony PENICILLIN 07/08/2016 Matti DAUGHERTY, F Z90.49 ACQUIRED ABSENCE OF Lars Cruz OTHER SPECIFIED PARTS OF DIGES Procedures Code Description Performed By Performed On Matti DAUGHERTY, 07/08/2016 [id number] REMOVAL OF INT FIX FROM Lars Cruz Anthony HIP JT, OPEN APPROACH Matti DAUGHERTY, 07/08/2016 [id number] REPLACE OF L HIP JT WITH Lars Cruz SYNTH SUB, CEMENT, OPEN A Matti DAUGHERTY, 07/08/2016 [id number] INTRODUCTION OF OTH Lars Cruz ANTI-INFECT INTO JOINT, OPEN A Encounters ACCT Visit Discharge Status Pt. Type Provider Facility Loc./Unit Complaint No. Date/Time [id number] 07/08/2016 07/12/2016 DIS Inpatient Matti DAUGHERTY, Carl [id number] [id number] 12:35:00 14:57:00 [facility]
[2017-01-13] MEDS ORDERED: MORPHINE SULFATE 4 MG SYRINGE IVP PRN (23:02)
[2017-01-13] MEDS: HALOPERIDOL 5 MG/ML INJECTION IVP PRN (23:13)
--- NOTE | 2017-01-13 23:25 | History & Physical Report ---
History of Present Illness Date: 01/13/17 Chief complaint: none by patient with increased confusion per SNF HPI: Ms. Solorzano is an 81yo woman with h/o dementia with behavioral disturbance, HTN, hypothyroidism, afib, choly, and 05/2016 L femoral fx now with progressive confusion over the last weeks started on depakote spinkles in the last day but with debility as well and fall this PM into a doorframe with increase confusion even more so. Son is at the bedside and feels that she is more confused over the last weeks with little quality of life and with information regarding ICH on CT with R temporal extending to parietal wants to make her comfort care. No emesis or significant lateralization at this time. No recent infx. Review of Systems ROS unobtainable: due to mental status [facility] Medical History (Last Reviewed 09/28/16 @ 10:04 by Rui Parada MD) Arthritis (Chronic Medical) Cancer (Chronic Medical) hypothyroidism afib femoral fx HTN Surgical History: choly Family History: Family History (Last Reviewed 09/28/16 @ 10:04 by Rui Parada MD) Maternal Grandmother Diabetes Stroke - Social History Smoking status: Current every day smoker Alcohol intake frequency: does not drink Housing: prison Medications Home Medications Medication Instructions Recorded Confirmed Type Aspirin [Aspir 81] 81 mg PO BID #0 10/28/09 History Amiodarone HCl 200 mg PO DAILY #0 07/08/16 01/13/17 History Magnesium Hydroxide [Milk of 30 ml PO DAILY PRN #0 07/08/16 History Magnesia] Sennosides/Docusate Sodium [Sm 1 tab PO BID #0 07/08/16 History Senna-S Tablet] Bisacodyl 1 suppositor RECTALLY DAILY PRN #0 08/06/16 01/13/17 History Bisacodyl 10 mg PO DAILY #0 08/06/16 01/13/17 History Mirtazapine 7.5 mg PO HS #0 08/06/16 History Ondansetron [Zofran Odt] 4 mg PO Q4HR PRN #0 08/06/16 History Tirosint (levothyroxine) 100 mcg 100 mcg PO DAILY cap 09/28/16 01/13/17 History capsule Amiodarone [Pacerone] 200 mg PO DAILY 01/13/17 01/13/17 History Calcium 600 + D [Caltrate + D] 600 mg PO DAILY 01/13/17 01/13/17 History Divalproex Sodium [Depakote] 250 mg PO DAILY 01/13/17 01/13/17 History Allergies Allergy/AdvReac Type Severity Reaction Status Date / Time Penicillins Allergy Intermediate RASH/SWELLI Verified 01/13/17 22:21 NG Exam Vital Signs: Temperature 98.1 F 01/13/17 21:09 Pulse Rate 67 01/13/17 22:20 Respiratory Rate 18 01/13/17 22:20 Blood Pressure 114/55 01/13/17 21:09 Pulse Oximetry 97 01/13/17 22:20 Telemetry Rhythm: Sinus Rhythm - Constitutional Present: moderate distress - Routine HEENT Exam Head: Present: normocephalic Eye: Present: EOMI - Routine Respiratory Exam Present: CTA bilaterally. Absent: accessory muscle use - Routine Cardiovascular Exam Present: RRR, S1, S2, no murmur - Routine Abdominal Exam Present: soft, normoactive bowel sounds - Routine Neurological Exam combative and cannot cooperate sitter and son holding arms Results - Labs CBC & Chem 7: 01/13/17 21:50 01/13/17 21:50 Assessment and Plan (1) ICH (intracerebral hemorrhage) Current visit: Yes Status: Acute 01/13/17 23:27 to be made comfort care with DNR, hospice consult, hold oral meds and dose prn narcotic IV, ativan IV, and haldol IV to start. Dementia with behavioral disturbance. HTN--hold meds Pafib--hold warfarin and prior only ASA Hypothyroidism DNR Hospital Course Summary Disclaimer: The visit summary below is not to be considered part of the above Progress Note.
[2017-01-13 23:35] VITALS: BMI 29.9
[2017-01-14] MEDS: HALOPERIDOL 5 MG/ML INJECTION IVP PRN ×2 (00:15→08:37)
[2017-01-14 07:45] VITALS: RESP 20
[2017-01-14 11:43] VITALS: BP 148/71; PULSE 82; TEMP 98.6; O2SAT 97
[2017-01-14] MEDS ORDERED: HALOPERIDOL 1 MG/0.5 ML ORAL LIQUID PO PRN (13:04)
[2017-01-14] MEDS ORDERED: LORazepam 0.5 MG TABLET PO PRN (13:05)
--- NOTE | 2017-01-14 13:36 | Discharge Instructions ---
Discharge Plan - Med Rec/Dispo Referrals/Follow Up: Leigh Palmer DO [Family Provider] - (follow up as needed; can also contact [facility] hospice if symptom management needed ) Prescriptions: New Morphine Sulfate 7.5 mg PO Q3H PRN #30 tab PRN Reason: Pain /Air Hunger LORazepam [Ativan] 0.5 mg PO Q4H PRN #30 tab PRN Reason: Agitation/Air Hunger/Pain Continue Sennosides/Docusate Sodium [Sm Senna-S Tablet] 1 tab PO BID #0 Mirtazapine 7.5 mg PO HS #0 Bisacodyl 10 mg PO DAILY #0 Ondansetron [Zofran Odt] 4 mg PO Q4HR PRN #0 PRN Reason: NAUSEA &/OR VOMITING Divalproex Sodium [Depakote] 250 mg PO DAILY Amiodarone HCl 200 mg PO DAILY #0 Bisacodyl 1 suppositor RECTALLY DAILY PRN #0 PRN Reason: CONSTIPATION Discontinued Hydrocodone/Acetaminophen ([place] 5-325 Tablet) 1 - 2 tab PO Q4-6HPRN PRN #30 tab PRN Reason: PAIN Calcium 600 + D [Caltrate + D] 600 mg PO DAILY Amiodarone [Pacerone] 200 mg PO DAILY Aspirin [Aspir 81] 81 mg PO BID #0 Magnesium Hydroxide [Milk of Magnesia] 30 ml PO DAILY PRN #0 PRN Reason: CONSTIPATION Tirosint (levothyroxine) 100 mcg capsule 100 mcg PO DAILY cap Discharge Instructions/Outpatient Orders: Final Provider Discharge Instructions Location: Determined By Patient
--- NOTE | 2017-01-14 13:48 | Discharge Summary ---
Discharge Information Date of admission: 01/13/17 22:11 Anticipated date of discharge: 01/14/17 Attending Physician: Bety Vazquez MD Primary care physician: Leigh Palmer DO Consults: 01/13/17 23:36 Dietary Consult [CONS] Routine Comment: Reason For Exam: 01/14/17 10:37 Hospice Consult [CONS] Routine Comment: [facility] - Discharge Diagnosis (1) ICH (intracerebral hemorrhage) Status: Acute - Radiology Radiology: CT of the head done on arrival demonstrating large ICH (> 6 cm in size initially ) with surrounding edema. History of Present Illness HPI: Ms. Solorzano is an 81yo woman with h/o dementia with behavioral disturbance, HTN, hypothyroidism, afib, choly, and 05/2016 L femoral fx now with progressive confusion over the last weeks started on depakote spinkles in the last day but with debility as well and fall this PM into a doorframe with increase confusion even more so. Son is at the bedside and feels that she is more confused over the last weeks with little quality of life and with information regarding ICH on CT with R temporal extending to parietal wants to make her comfort care. No emesis or significant lateralization at this time. No recent infx. Objective Vital signs: Temperature 98.6 F 01/14/17 11:42 Pulse Rate 82 01/14/17 11:42 Respiratory Rate 20 01/14/17 07:30 Blood Pressure 148/71 H 01/14/17 11:42 Pulse Oximetry 97 01/14/17 11:42 Height/Weight/BMI: Height 1.52 m Weight 69.7 kg Body Mass Index 29.9 - Constitutional Present: no acute distress, cachectic, somnolent - Routine HEENT Exam Head: Present: normocephalic, atraumatic Eye: Present: EOMI, PERRL ENT: Present: mucous membranes moist, oropharynx clear Comments: adentulous - Routine Respiratory Exam Present: decreased breath sounds. Absent: rhonchi, wheezes, crackles - Routine Cardiovascular Exam Present: irregular rhythm - Routine Abdominal Exam Present: soft, normoactive bowel sounds, non distended - Routine Extremities Exam Present: pulses intact, normal capillary refill. Absent: edema - Routine Back/Spine/Pelvis Exam Back/Spine: Present: full ROM - Routine Musculoskeletal Exam Musculoskeletal: Absent: no tenderness, joint erythera - Routine Skin Exam Present: dry, warm. Absent: rash - Routine Neurological Exam Present: altered mental status - Routine Psychiatric Exam Present: unable to assess Hospital Course This is a general summary of the patient's hospital course. For more details refer to the complete medical record. Hospital course: aLurie Solorzano was admitted overnight with a large ICH after several recent admissions and a general decline in her health in recent months. There have bene a lot of talls at home and that presumably caused this event as well. Her family does not want her to suffer and her son is clear on her wishes for no aggressive care. Comfort measures were started overnight. She is comfortable now, has been evaluated by [facility] and is not fit for the IPU but will do well at her facility with comfort care. Orders for lorazepam and MISR were started per hospice recommendations. She will discharge back to her facility with hospice care today. Time spent with patient: discharge greater than 30 minutes Discharge Plan - Med Rec/Dispo Referrals/Follow Up: Leigh Palmer DO [Family Provider] - (follow up as needed; can also contact [facility] if symptom management needed ) Prescriptions: New Morphine Sulfate 7.5 mg PO Q3H PRN #30 tab PRN Reason: Pain /Air Hunger LORazepam [Ativan] 0.5 mg PO Q4H PRN #30 tab PRN Reason: Agitation/Air Hunger/Pain Continue Sennosides/Docusate Sodium [Sm Senna-S Tablet] 1 tab PO BID #0 Mirtazapine 7.5 mg PO HS #0 Bisacodyl 10 mg PO DAILY #0 Ondansetron [Zofran Odt] 4 mg PO Q4HR PRN #0 PRN Reason: NAUSEA &/OR VOMITING Divalproex Sodium [Depakote] 250 mg PO DAILY Amiodarone HCl 200 mg PO DAILY #0 Bisacodyl 1 suppositor RECTALLY DAILY PRN #0 PRN Reason: CONSTIPATION Discontinued Hydrocodone/Acetaminophen ([place] 5-325 Tablet) 1 - 2 tab PO Q4-6HPRN PRN #30 tab PRN Reason: PAIN Calcium 600 + D [Caltrate + D] 600 mg PO DAILY Amiodarone [Pacerone] 200 mg PO DAILY Aspirin [Aspir 81] 81 mg PO BID #0 Magnesium Hydroxide [Milk of Magnesia] 30 ml PO DAILY PRN #0 PRN Reason: CONSTIPATION Tirosint (levothyroxine) 100 mcg capsule 100 mcg PO DAILY cap Discharge Instructions/Outpatient Orders: Final Provider Discharge Instructions Location: Determined By Patient
[2017-01-14] MEDS ORDERED: ONDANSETRON ODT 4 MG TABLET PO PRN (14:46)
--- NOTE | 2017-01-14 14:56 | Extended Care Facility Orders ---
Admission Orders Admit to:: Hospice Allergies/Adverse Reactions: Allergies Penicillins Allergy (Intermediate, Verified 01/13/17 22:21) RASH/SWELLING Admitting Diagnosis: ICH Intracranial Hemorrhage End of Life Care Admitting Physician: Bety Vazquez MD Attending Physician: Bety Vazquez MD Anticiapted Length of Stay: 30 days or less Rehab Potential: poor Rehab Prognosis: poor Diet: as tolerated; NPO unless po intake is for comfort May use Facility Protocol or Standing Orders: Yes May have flu vaccine: No [facility] Certification: I certify that SNF services are required to be given on an Inpatient basis because of the patients need for halfway care on a continuing basis for the condition(s) for which he/she received inpatient hospital services prior to his/her transfer to the SNF. SNF inpatient care is necessary for the following reasons Indication for [facility]: Not Applicable - Additional Information In Event of Arrest: Do Not Start CPR Resident is Aware of Diagnosis: No (minimally responsive) Referrals: Leigh Palmer DO [Family Provider] - (follow up as needed; can also contact [facility] hosp[facility] if symptom management needed )
[2017-01-14] MEDS ORDERED: MIRTAZAPINE 15 MG TABLET PO SCH (21:00)
[2017-01-14] MEDS ORDERED: SENNA + DOCUSATE TABLET PO SCH (21:00)
[2017-01-14] MEDS ORDERED: MIRTAZAPINE 7.5 MG PO SCH (21:00)
--- NOTE | 2017-01-15 09:45 | CT Scan Report ---
Indication: altered mental status, fall PROCEDURE: CT head/brain wo con: Encounter: Initial Comparison: July 08, 2016 Technique: Axial CT images through the head were performed without contrast. Iterative Reconstruction dose reducing technique was utilized. FINDINGS: Large intraventricular hemorrhage extending throughout the right lateral ventricle and into the third. This appears to originate from a parenchymal bleed in the right temporal lobe, possibly representing a hemorrhagic contusion. Some hemorrhage extends into the right parietal lobe as well. There is associated significant vasogenic edema in the right temporal and parietal lobes. There is no acute midline shift. Motion artifact. Extensive diffuse white matter disease is redemonstrated. No focal subdural or epidural hemorrhage appreciated. No acute calvarial fracture. Right parietal scalp swelling and hematoma. Impression: Large right-sided hemorrhage which appears to represent a temporal lobe parenchymal hemorrhage with extension into the ventricular system. Emergent neurosurgical consultation is recommended. There is a preliminary report by virtual radiologic. .
== END 2017-01-14 15:50 | disposition hospice, home (50) | DRG 87 ==
LOC: ED 21:09 → MED 22:11
PROVIDERS: ADMIT Hospitalist; ATTEND Hospitalist